=== PATIENT | male | born 1945 ===

== ENCOUNTER 2017-12-27 05:02 | Emergency (ER) | payer MEDICARE, MEDICAID ==
--- NOTE | 2017-12-27 06:15 | ER Document Report ---
ED General - General Chief Complaint: Fall Stated Complaint: FALL/UNKNOWN INJURY Time Seen by Provider: 12/27/17 05:19 TRAVEL OUTSIDE OF THE [place] IN LAST 30 DAYS: No - HPI Notes: Note history is limited by underlying dementia. 72-year-old male with unwitnessed fall at the residential. Was found on the floor. Some equivocal history that he had hip pain initially. No head injury, no loss consciousness is described. Patient does not use anticoagulants. When asked about any complaints, he tells me he has none. No other modifying factors, no other associated symptoms, no other provocative or palliative factors. - Related Data Allergies/Adverse Reactions: No Known Allergies Allergy (Verified 12/27/17 06:04) Past Medical History - Social History Smoking Status: Unknown if Ever Smoked Chew tobacco use (# tins/day): No Frequency of alcohol use: None Drug Abuse: None Family History: Reviewed & Not Pertinent Patient has suicidal ideation: No Patient has homicidal ideation: No Pulmonary Medical History: Reports: Hx COPD Renal/ Medical History: Denies: Hx Peritoneal Dialysis Review of Systems - Review of Systems Notes: Review of systems as in history of present illness otherwise limited by dementia Physical Exam - Vital signs Vitals: Temp Resp BP Pulse Ox 97.4 F 22 H 172/115 H 98 12/27/17 05:03 12/27/17 05:03 12/27/17 05:03 12/27/17 05:03 - Notes Notes: General: Well-developed, well-nourished HEENT: Normocephalic. No external trauma noted. No chapin sign, no hemotympanum. Mucosa is moist. No intraoral trauma. Neck: Midline trachea, no JVD. No midline cervical spine tenderness. No step- off or deformity. Chest: Normal excursion, no accessory muscle use. No gross trauma. Abdomen: Soft, nondistended. Nontender. No bruising. Pelvis: Stable. Vascular: Strong and symmetric upper and lower extremity pulses. Well-perfused extremities. Motor: Normal tone and power. Neurologic: Alert to person nonfocal. Sensation symmetric and intact. Skin: No significant lacerations or purpura. Extremities: No cyanosis. No significant injury noted. There is no craniofacial trauma, no neck tenderness, no external sign of trauma. I am able to range the hips to flexion extension internal/external rotation without difficulty. Course - Re-evaluation Re-evalutation: 12/27/17 06:15 Well-appearing elderly male with fall, no obvious injury. I will err on the side of caution obtain plain films of both hips given his previous stated history of hip pain. Reassess. 12/27/17 08:30 Note that on reevaluation patient has absolutely no tenderness and is moving his toes without difficulty. Unfortunately, he has relatively severe underlying dementia and behavioral issues. He began to try to get out of bed and became quite combative with staff. He received an injection of intramuscular haloperidol for his own safety. Ultimately calm down is resting comfortably. However, at this point given his vigorous resistance and pain- free motion of his hips on evaluation, I do not believe there is clinical evidence to support continued pursuit of radiography. Patient otherwise is back to his normal condition, will be discharged back to his residential. - Vital Signs Vital signs: Temp Pulse Resp BP Pulse Ox 97.4 F 22 H 172/115 H 98 12/27/17 05:03 12/27/17 05:03 12/27/17 05:03 12/27/17 05:03 Discharge - Discharge Clinical Impression: Fall Qualifiers: Encounter type: initial encounter Qualified Code(s): W19.XXXA - Unspecified fall, initial encounter Condition: Good Disposition: HOME, SELF-CARE Instructions: Normal Exam and Workup ([facility] [place])
[2017-12-27] MEDS ORDERED: HALOPERIDOL LACTATE INJ 5 MG/1 ML VIAL ONE (07:02)
[2017-12-27] MEDS ORDERED: QUETIAPINE FUMARATE 25 MG TABLET PO ONE (07:37)
[2017-12-27 08:40] VITALS: BP 168/98
== END 2017-12-27 08:41 | disposition home or self-care (01) ==
LOC: ER 05:02
DX: M25.559 Pain in unspecified hip (principal); W19.XXXA Unspecified fall, initial encounter; Y92.129 Unspecified place in nursing home as the place of occurrence of the external cause; F03.90 Unspecified dementia, unspecified severity, without behavioral disturbance, psychotic disturbance, mood disturbance, and anxiety; J44.9 Chronic obstructive pulmonary disease, unspecified
CPT/HCPCS: 99284; 96372; J1630